=== PATIENT | male | born 1985 | race Caucasian/White ===

== ENCOUNTER 2024-07-18 04:11 | Emergency (ER) | payer MEDICAID | END 2024-07-18 06:39 | disposition left against medical advice (07) | LOC: ER 04:13 | DX: Z53.21 Procedure and treatment not carried out due to patient leaving prior to being seen by health care provider (principal) ==

== ENCOUNTER 2024-09-04 06:30 | Emergency (ER) | payer MEDICAID ==
[~2024-09-04] VITALS: Ht 177.8 cm; Wt 86.2 kg
[2024-09-04 06:44] VITALS: BP 161/112; TEMP 98.2; O2SAT 98
[2024-09-04] MEDS ORDERED: CHLO25CA22 PO (07:46)
[2024-09-04] MEDS ORDERED: INDO50CA92 PO (07:46)
[2024-09-04] MEDS: KETOROLAC TROMETHAMINE 15 MG/ML VIAL IM ONE (08:00)
== END 2024-09-04 08:02 | disposition home or self-care (01) ==
LOC: ER 06:31
DX: M79.672 Pain in left foot (principal); M79.671 Pain in right foot; M10.9 Gout, unspecified; F10.10 Alcohol abuse, uncomplicated; I10 Essential (primary) hypertension; F90.9 Attention-deficit hyperactivity disorder, unspecified type